=== PATIENT | male | born 1990 | race Caucasian/White ===

== ENCOUNTER 2017-11-06 18:18 | Emergency (ER) | payer MEDICAID ==
[~2017-11-06] VITALS: Ht 172.7 cm; Wt 80.3 kg
[~2017-11-06 18:18] MED LIST: DIPH-735 PO; GABA400C PO; IBUP-1986 PO; IBUP-814 PO; NO HOME MEDS; OMEP20TA23 PO; OMEP20TA5 PO; TRAM50TA2 PO; [UNRECOGNIZED DRUG - CODE] PO
[2017-11-06] MEDS ORDERED: bacitracin 15gm ointment TP ONE (20:15)
[2017-11-06 20:36] VITALS: BP 140/79
== END 2017-11-06 20:38 | disposition home or self-care (01) ==
LOC: ER 18:19
DX: S61.211A Laceration without foreign body of left index finger without damage to nail, initial encounter (principal); K21.9 Gastro-esophageal reflux disease without esophagitis; F12.10 Cannabis abuse, uncomplicated; F15.10 Other stimulant abuse, uncomplicated; Z88.0 Allergy status to penicillin; W45.8XXA Other foreign body or object entering through skin, initial encounter; Y93.89 Activity, other specified; Y92.89 Other specified places as the place of occurrence of the external cause; Y99.8 Other external cause status
CPT/HCPCS: 99282; 99283

== ENCOUNTER → 2017-12-07 | Emergency (ER) | payer MEDICAID ==
[~2017-12-07] VITALS: Ht 172.7 cm; Wt 86.0 kg
== END | disposition left against medical advice (07) ==
LOC: ER 02:08
DX: L03.012 Cellulitis of left finger (principal); J45.909 Unspecified asthma, uncomplicated; K21.9 Gastro-esophageal reflux disease without esophagitis; G89.29 Other chronic pain; F12.10 Cannabis abuse, uncomplicated; F15.10 Other stimulant abuse, uncomplicated; Z86.19 Personal history of other infectious and parasitic diseases; Z59.0 Homelessness; Z56.0 Unemployment, unspecified; Z88.0 Allergy status to penicillin; Z79.899 Other long term (current) drug therapy
CPT/HCPCS: 99281

== ENCOUNTER 2017-12-31 15:22 | Emergency (ER) | payer MEDICAID ==
[~2017-12-31] VITALS: Ht 172.7 cm; Wt 75.0 kg
[2017-12-31 16:13] LABS: BASOPHILS # (AUTO) 0.1 X10'3 (0-0.2); BASOPHILS % (AUTO) 0.6 % (0-1); EOSINOPHILS # (AUTO) 0.2 X10'3 (0-0.9); EOSINOPHILS % (AUTO) 1.6 % (0-6); HEMATOCRIT 42.6 % (42.0-52.0); HEMOGLOBIN 14.5 g/dl (14.0-17.9); LYMPHOCYTES # (AUTO) 2.7 X10'3 (1.1-4.8); LYMPHOCYTES % (AUTO) 26.3 % (21-51); MEAN CORPUSCULAR VOLUME 82.3 FL (78-98); MEAN PLATELET VOLUME 8.1 FL (7.4-10.4); MONOCYTES % (AUTO) 9.7 % (2-12); NEUTROPHILS # (AUTO) 6.4 X10'3 (1.8-7.7); NEUTROPHILS % (AUTO) 61.8 % (42-75); PLATELET COUNT 315 X10'3 (140-440); RED BLOOD COUNT 5.18 X10'6 (4.70-6.10); WHITE BLOOD COUNT 10.3 X10'3 (4.5-11.0)
[2017-12-31 16:24] LABS: PROTHROMBIN TIME 10.5 SECONDS (9.0-12.0)
[2017-12-31 16:28] LABS: ALANINE AMINOTRANSFERASE 36 U/L (12-78); ALBUMIN 3.6 G/DL (3.4-5.0); ALBUMIN/GLOBULIN RATIO 1.1 (1.1-1.5); ALKALINE PHOSPHATASE 80 IU/L (46-116); ANION GAP 8 (8-16); ASPARTATE AMINO TRANSFERASE 25 U/L (10-37); BILIRUBIN,TOTAL 0.4 MG/DL (0.1-1.0); BLOOD UREA NITROGEN 14 MG/DL (7-18); BUN/CREATININE RATIO 14.7 (5.4-32.0); CALCIUM 9.1 MG/DL (8.5-10.1); CHLORIDE 102 MMOL/L (99-107); CREATININE 0.95 MG/DL (0.60-1.10); GLUCOSE 91 MG/DL (70-104); POTASSIUM 3.5 MMOL/L (3.5-5.1); SODIUM 142 MMOL/L (135-145); TOTAL CARBON DIOXIDE 32.3 MMOL/L (24-32); TOTAL PROTEIN 6.9 G/DL (6.4-8.2); eGFR > 90 ML/MIN
[2017-12-31 18:51] VITALS: BP 121/66
[2017-12-31] MEDS ORDERED: ondansetron 4mg rapidly disintigrating tab PO ONE (19:10)
[2017-12-31] MEDS ORDERED: LIDOcaine Viscous 15ml cup MM STA (19:10)
[2017-12-31] MEDS ORDERED: mag hydrox/Alum hydrox/simeth 30ml oral suspension PO ONE (19:10)
[2017-12-31] MEDS ORDERED: pantoprazole 40mg Tablet.DR PO STA (19:10)
[2017-12-31] MEDS ORDERED: ONDA4TAB12 PO (19:40)
[2017-12-31] MEDS ORDERED: PANT-47 PO (19:40)
[2017-12-31 20:16] LABS: OCCULT BLOOD STOOL NEGATIVE (Neg)
== END 2017-12-31 20:10 | disposition home or self-care (01) ==
LOC: ER 15:23
DX: K29.00 Acute gastritis without bleeding (principal); F15.10 Other stimulant abuse, uncomplicated; J45.909 Unspecified asthma, uncomplicated; K21.9 Gastro-esophageal reflux disease without esophagitis; G89.29 Other chronic pain; F12.10 Cannabis abuse, uncomplicated; Z86.19 Personal history of other infectious and parasitic diseases; Z56.0 Unemployment, unspecified; Z59.0 Homelessness; Z88.0 Allergy status to penicillin; Z79.899 Other long term (current) drug therapy
CPT/HCPCS: 36415; 80053; 82272; 85025; 85610; 99284

== ENCOUNTER 2018-02-07 23:21 | Emergency (ER) | payer MEDICAID ==
[~2018-02-07] VITALS: Ht 172.7 cm; Wt 69.3 kg
[~2018-02-07 23:21] MED LIST changes: +ONDA4TAB12 PO; +PANT-47 PO
[2018-02-07 23:26] VITALS: BP 125/80
[2018-02-08] MEDS ORDERED: TETanus/Pertussis (Acell)/Diphther VAC/PF (Tdap-Adult) 0.5ml syringe IM ONE (01:45)
== END 2018-02-08 02:40 | disposition home or self-care (01) ==
LOC: ER 23:22
DX: S60.512A Abrasion of left hand, initial encounter (principal); J45.909 Unspecified asthma, uncomplicated; K21.9 Gastro-esophageal reflux disease without esophagitis; G89.29 Other chronic pain; F12.90 Cannabis use, unspecified, uncomplicated; F15.90 Other stimulant use, unspecified, uncomplicated; Z56.0 Unemployment, unspecified; Z87.11 Personal history of peptic ulcer disease; Z59.0 Homelessness; Z88.0 Allergy status to penicillin; Z79.899 Other long term (current) drug therapy; V19.88XA Pedal cyclist (driver) (passenger) injured in other specified transport accidents, initial encounter; Y93.55 Activity, bike riding; Y92.89 Other specified places as the place of occurrence of the external cause; Y99.9 Unspecified external cause status
CPT/HCPCS: 73130; 99284